=== PATIENT | male | born 1995 | race African-American/Black ===

== ENCOUNTER 2016-08-06 01:39 | Emergency (ER) | payer OTHER ==
[~2016-08-06] VITALS: Ht 185.4 cm; Wt 86.2 kg
[2016-08-06 02:04] VITALS: BP 135/84
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
--- NOTE | 2016-08-06 04:15 | CT SCAN REPORT ---
EXAMINATION: CT HEAD WITHOUT CONTRAST CLINICAL INFORMATION: Head injury. COMPARISON: None. TECHNIQUE: Contiguous axial imaging was performed from the skull base to vertex without intravenous administration of contrast. DLP: 601 mGy-cm. FINDINGS: There is no evidence of acute intracranial hemorrhage or territorial infarction. No abnormal mass effect or midline shift is seen. Gil to white matter differentiation is well preserved. No extra-axial fluid collections are identified. The ventricles are normal in size. There is no abnormal attenuation within the brain parenchyma. There is a large 1.5 cm thick hematoma the right supraorbital rim. Underlying fracture. Imaged portion of the right orbit is unremarkable. The osseous structures and soft tissues are otherwise normal. The mastoid air cells and visualized portions of the paranasal sinuses are well aerated. IMPRESSION: Large hematoma over the right supraorbital rim. No underlying fracture. No acute intracranial pathology.
== END 2016-08-06 04:40 ==
LOC: ERH 01:39
DX: S01.81XA Laceration without foreign body of other part of head, initial encounter (principal); S09.90XA Unspecified injury of head, initial encounter; Y04.8XXA Assault by other bodily force, initial encounter